=== PATIENT | female | born 1935 | race Caucasian/White ===

== ENCOUNTER → 2016-12-11 | Outpatient (CLI) | payer OTHER, MEDICAID ==
[2014-12-16 10:19] VITALS: BP 157/70
[~2016-12-11] MED LIST: LEXISCAN IV ONE
== END ==
LOC: RAD 08:24
PROVIDERS: ATTEND Nurse Practitioner Family
DX: R07.89 Other chest pain (principal); R42 Dizziness and giddiness; R53.83 Other fatigue; I10 Essential (primary) hypertension; R06.02 Shortness of breath
CPT/HCPCS: 78452; 93017; A4222; A9502; J2785

== ENCOUNTER 2020-03-15 11:07 | Inpatient (IN) ==
--- NOTE | 2020-03-15 12:28 | DR.H&P ---
H&P - History & Physical for Day of: H&P Date: 03/15/20 - Chief Complaint Chief Complaint: fever, sob, ccc - History of Present Illness History of Present Illness: PT IS 84 WF DIRECT ADMIT FROM DR MANDEL OFFICE WITH FEVER 100.9, O2 SAT 88-90% WITH CO BODY ACHES ALL OVER. PT CO SHE HAD COMPLETED ZITHROMAX AND PREDNISONE AND USING BREATHING TREATMENT WITHOUT IMPROVEMENT. PT HAS PMH OF HTN AND HYPOTHYROIDISM. PT HAD NEGATIVE FLU SWAB IN THE OFFICE. - Past Medical History Past Medical History: Hypertension, Hypothyroidism - Social History Does patient currently use any type of tobacco product: No Have you used tobacco products in the last 12 months: No Type of Tobacco Use: None Does any household member use tobacco: No Alcohol Use: None Drug Use: None Risks, benefits, and alternatives of opioids discussed: No Prescription drug monitoring program results: PDMP reviewed and no concerns identified - Medications Home Medications: UNOBTAINABLE Allergy (Unverified 12/02/14 12:13) - Review of Systems Constitutional: Fever, Chills, Sweats, Malaise Eyes: No Symptoms Reported ENT: No Symptoms Reported Respiratory: Cough, Shortness of Breath, SOB with Excertion, Sputum, Wheezing Gastrointestinal: Nausea Genitourinary: No Symptoms Reported Musculoskeletal: Back Pain Skin: No Symptoms Reported Neurological: No Symptoms Reported - Physical Exam Vital Signs: Blood Pressure 157/70 Oriented: Normal Eyes: Normal Ear: Normal Nose: Normal Throat: Dry Respiratory: RLL Diminished, LLL Diminished Cardiovascular: Tachycardia : Normal Auscultation: Bowel Sounds: Normal Palpation: Normal Tenderness: Normal Skin: Decreased Turgur Musculoskeletal: Back:Lumbar Psychiatric: Normal Affect: Anxious Speech Pattern: Clear, Appropriate - Assessment/Plan (1) SOB (shortness of breath) Status: Acute Plan: ADMIT, COVID 19 R/O ON ADMISSION. ABG, DDIMER, CXR, EKG AND RESP CONSULT. BLOOD URINE AND SPUTUM CULTURES ON ADMISSION. SUPPLEMENTAL O2, IV ATBX THERAPY (2) Fever Status: Acute (3) Pneumonia Status: Acute - Allergies Allergies/Adverse Reactions: Allergies Allergy/AdvReac Type Severity Reaction Status Date / Time UNOBTAINABLE Allergy Unverified 12/02/14 12:13
--- NOTE | 2020-03-15 12:55 | RAD ---
HISTORYPNEUMONIA, FEVER, SOB, COUGHSTUDYCHEST, PA/LAT ADULTCOMPARISONNoneFINDINGSThe trachea is midline. The cardiac silhouette is unremarkable . The lungs are clear without focal infiltrate or effusion. The bony thorax is unremarkable.IMPRESSIONNo acute cardiopulmonary disease.Electronically signed by: FAYE BROOKS (Mar 15, 2020 12:54:06)
[2020-03-15] MEDS ORDERED: NS 1000 ML 1,000 ML IV SCH (13:00)
[2020-03-15 13:32] LABS: BASOPHILS % (AUTO) 0.2 % (0.2-1.0); HEMATOCRIT 40.9 % (36.0-47.0); HEMOGLOBIN 13.7 g/dL (12.0-16.0); LYMPHOCYTES % (AUTO) 11.4 % (21.0-51.0); MEAN CORPUSCULAR HEMOGLOBIN 34.1 pg (27.0-34.0); MEAN CORPUSCULAR HGB CONC 33.6 g/dL (33.0-35.0); MEAN CORPUSCULAR VOLUME 101.6 fL (80.0-100.0); MEAN PLATELET VOLUME 9.7 fL (7.4-11.0); MONOCYTES # (AUTO) 0.9 x10^3/uL (0.3-0.8); MONOCYTES % (AUTO) 9.4 % (0.0-13.0); NEUTROPHILS # (AUTO) 7.2 x10^3/uL (2.2-4.8); PLATELET COUNT 249 X10^3/uL (150.0-450.0); RED BLOOD COUNT 4.02 X10^6/uL (3.5-5.4); RED CELL DISTRIBUTION WIDTH 13.6 % (11.6-16.5); WHITE BLOOD COUNT 9.1 X10^3/uL (3.6-10.0)
[2020-03-15 13:51] LABS: ALANINE AMINOTRANSFERASE 20 Units/L (12-78); ALBUMIN 3.4 g/dL (3.4-5.0); ALKALINE PHOSPHATASE 71 Units/L (46-116); ASPARTATE AMINO TRANSFERASE 27 Units/L (15-37); BLOOD UREA NITROGEN 28 mg/dL (7-18); CALCIUM 8.9 mg/dL (8.5-10.1); CARBON DIOXIDE 24.2 mmol/L (21-32); CHLORIDE 102 mmol/L (98-107); COR NA(FOR HYPERGLY) 139 mmol/L (136-145); CREATININE 1.55 mg/dL (0.55-1.02); MAGNESIUM 1.9 mg/dL (1.7-2.9); SODIUM 139 mmol/L (136-145); eGFR NON BLACK RACES 34 (>60)
[2020-03-15] MEDS: PROTONIX INJ 40 MG VIAL IVP SCH (13:52)
[2020-03-15 13:53] LABS: ABG ALLEN TEST POS; ABG BASE EXCESS -1.7 mmol/L (-2.0-2.0); ABG HCO3 21.5 mmol/L (22-26)
[2020-03-15] MEDS ORDERED: REMDESIVIR 200 MG in NS 250 ML IV 250 ML IV SCH (14:00)
[2020-03-15] MEDS: ZITHROMAX INJ 500 MG VIAL 500 MG in NS 250 ML IV 250 ML IV SCH (14:02)
[2020-03-15 14:04] LABS: CKMB % 2.9 % (<4); CREATINE KINASE 34 Units/L (26-192); CREATINE KINASE MB < 1.0 ng/mL (0-4.0); TROPONIN I 0.02 ng/mL (0-1.5)
[2020-03-15] MEDS: SOLU-Medrol 125 MG VIAL IVP SCH ×2 (14:26→21:01)
[2020-03-15 14:42] LABS: BILIRUBIN,URINE NEGATIVE (NEGATIVE); BLOOD/HEMOGLOBIN,URINE NEGATIVE (NEGATIVE); GLUCOSE, URINE NEGATIVE (NEGATIVE); KETONES,URINE 2+ (NEGATIVE); LEUKOCYTE ESTERASE ,URINE NEGATIVE (NEGATIVE); NITRITES,URINE NEGATIVE (NEGATIVE); PROTEIN,URINE 3+ (NEGATIVE); UROBILINOGEN,URINE NORMAL (NORMAL)
[2020-03-15 15:04] VITALS: BMI 22.8
[2020-03-15 15:04] LABS: APPEARANCE,URINE HAZY (CLEAR); COLOR,URINE YELLOW (YELLOW); RBC,URINE 0-2 /HPF (0-3)
[2020-03-15 15:05] LABS: BACTERIA,URINE 1+ /HPF (NEGATIVE); SQUAMOUS EPITHELIAL CELL,UR FEW /HPF (NEGATIVE)
[2020-03-15] MEDS ORDERED: XOPENEX 1.25 MG/3 ML NEBULE NEB ONE (16:07)
[2020-03-15] MEDS: XOPENEX 1.25 MG/3 ML NEBULE NEB SCH (16:35)
[2020-03-15] MEDS: PULMICORT NEB TX 0.5 MG NEB SCH (21:19)
--- NOTE | 2020-03-15 23:23 | CT ---
STUDY: CT CHEST WITHOUT IV CONTRASTCOMPARISON: NoneTECHNIQUE: Axial images were acquired of the chest without IV contrast. Sagittal and coronal reformatted images were provided. All images were reviewed in a variety of windows and levels.3D MIPS were performed and reviewed.RADIATION REDUCTION TECHNIQUE: Automated exposure control, Adjustment of the mA and/or kV according to patient size, or iterative reconstruction techniques were used.HISTORY: COVID, ELEVATED D DIMER, R/O PE, MD WAS INFORMED BY RADIOLOGIST THAT EXAM W/O CONTRAST WOULD NOT SHOW A PE, INSISTEDFINDINGS:CHEST:?Please note that lack of IV contrast limits evaluation of soft tissue structures and vascular detail.?THYROID GLAND: The thyroid gland is grossly unremarkable.?HEART AND VESSELS: The heart size is within normal limits. There is no evidence of pericardial effusion. Thoracic aorta is normal in size without evidence of an aneurysm. Main pulmonary artery size is within normal limits.LYMPH NODES: There is no evidence of axillary, mediastinal, or hilar lymphadenopathy. ?AIRWAY: The trachea mainstem bronchi are patent. No intraluminal lesions are seen. ?LUNGS: Scattered areas of ground-glass opacities are seen throughout the right and left lung involving the subpleural surface and major fissures. These imaging features are in correlation with the patient's history of being positive for COVID-19ESOPHAGUS: The esophagus is grossly unremarkable.BONES: The visualized bones demonstrate degenerative changes. There are no concerning lytic or blastic lesions identified.UPPER ABDOMINAL STRUCTURES: The visualized upper abdominal structures are unremarkable.IMPRESSION:1. Imaging features in the lungs are in correlation with the patient's history of being positive for COVID-19.2. Please note that exam is limited due to lack of IV contrast. Pulmonary embolism cannot be assessed without the use of intravenous contrast on CT.Electronically signed by: Leo Bhatia (Mar 15, 2020 23:21:31)
[2020-03-15] MEDS ORDERED: NS 1000 ML 1,000 ML IV ONE (23:42)
[2020-03-15] MEDS ORDERED: ROCEPHIN 1 GRAM IV PREMIX 1 G/50 ML IV.SOLN. IV ONE (23:54)
[2020-03-16] MEDS: ROCEPHIN 1 GRAM IV PREMIX 1 G/50 ML IV.SOLN. IV SCH ×2 (00:03→21:03)
[2020-03-16] MEDS: XOPENEX 1.25 MG/3 ML NEBULE NEB SCH ×4 (00:41→17:05)
[2020-03-16] MEDS ORDERED: NS 500 ML IV 500 ML IV ONE ×2 (05:29→14:34)
[2020-03-16] MEDS: SOLU-Medrol 125 MG VIAL IVP SCH ×3 (05:42→21:04)
[2020-03-16] MEDS: NS 500 ML IV 500 ML IV SCH ×3 (05:49→17:20)
[2020-03-16 05:53] LABS: BASOPHILS % (AUTO) 0.2 % (0.2-1.0); LYMPHOCYTES # (AUTO) 0.9 X10^3/uL (1.3-2.9); LYMPHOCYTES % (AUTO) 14.2 % (21.0-51.0); MEAN CORPUSCULAR HEMOGLOBIN 34.9 pg (27.0-34.0); MEAN CORPUSCULAR HGB CONC 33.7 g/dL (33.0-35.0); MEAN CORPUSCULAR VOLUME 103.6 fL (80.0-100.0); MEAN PLATELET VOLUME 9.8 fL (7.4-11.0); MONOCYTES # (AUTO) 0.4 x10^3/uL (0.3-0.8); MONOCYTES % (AUTO) 6.7 % (0.0-13.0); NEUTROPHILS % (AUTO) 78.9 % (42.0-75.0); PLATELET COUNT 224 X10^3/uL (150.0-450.0); RED BLOOD COUNT 3.28 X10^6/uL (3.5-5.4); RED CELL DISTRIBUTION WIDTH 13.4 % (11.6-16.5); WHITE BLOOD COUNT 6.3 X10^3/uL (3.6-10.0)
[2020-03-16 06:02] LABS: HEMOGLOBIN 11.4 g/dL (12.0-16.0)
[2020-03-16 06:04] LABS: ALBUMIN 2.5 g/dL (3.4-5.0); CALCIUM 8.4 mg/dL (8.5-10.1); CARBON DIOXIDE 23.4 mmol/L (21-32); COR CA(FOR HYPOALB) 9.6 mg/dL (8.5-10.1); CREATININE 1.19 mg/dL (0.55-1.02); TOTAL PROTEIN 6.3 g/dL (6.4-8.2)
[2020-03-16] MEDS: PULMICORT NEB TX 0.5 MG NEB SCH ×2 (08:50→21:33)
[2020-03-16] MEDS: REMDESIVIR 100 MG in NS 250 ML IV 250 ML IV SCH (08:53)
[2020-03-16] MEDS: PROTONIX INJ 40 MG VIAL IVP SCH (08:53)
[2020-03-16] MEDS: TAB-A-VITE PO SCH (08:53)
[2020-03-16] MEDS: SYNTHROID 75 mcg TAB PO SCH (08:53)
[2020-03-16 09:55] LABS: ABG ALLEN TEST POS; ABG BASE EXCESS -2.9 mmol/L (-2.0-2.0); ABG HCO3 20.8 mmol/L (22-26)
[2020-03-16] MEDS: LOVENOX INJ 40 MG SYR SC SCH (09:57)
[2020-03-16] MEDS: ZITHROMAX INJ 500 MG VIAL 500 MG in NS 250 ML IV 250 ML IV SCH (09:58)
[2020-03-16] MEDS: VITAMIN D3 25 mcg (1,000 UNITS) PO SCH (11:03)
[2020-03-16] MEDS: ZINC SULFATE PO SCH (11:03)
--- NOTE | 2020-03-16 14:11 | CT ---
HISTORYCOVID, ELEVATED D DIMER, R/O PESTUDYCTA CHESTCOMPARISONCT chest without from 03/15/2020TECHNIQUECTA chest protocol with axial images from the thoracic inlet to upper abdomen with IV contrast. Sagittal and coronal reformats and MIP images were created. Automated exposure control was utilized.FINDINGSThyroid gland appears benign. The thoracic aorta measures up to 3.4 cm anteriorly at the proximal ascending portion. Pulmonary artery is borderline in size measuring 31 mm pulmonary trunk. No filling defect is identified to suggest pulmonary embolism. No pathologic adenopathy identified in the thorax. The heart is borderline in size. Severe coronary artery calcifications are present. No significant pericardial effusion. Visualized upper abdomen appears acutely benign. No acute osseous abnormality. The trachea and mainstem bronchi appear patent. Bilateral ground-glass and crazy paving lung opacities are again seen. No significant change from 1 day prior. Trace bilateral pleural effusions. No pneumothorax.IMPRESSIONNegative for pulmonary embolism. Pulmonary findings of covid 19. trace bilateral pleural effusions.Electronically signed by: Conrado Dan (Mar 16, 2020 14:09:45)
[2020-03-16] MEDS: ZOCOR TAB 10 MG PO SCH (21:03)
[2020-03-17] MEDS: XOPENEX 1.25 MG/3 ML NEBULE NEB SCH ×4 (00:50→17:10)
[2020-03-17 05:33] LABS: BASOPHILS % (AUTO) 0.2 % (0.2-1.0); HEMOGLOBIN 10.4 g/dL (12.0-16.0); LYMPHOCYTES % (AUTO) 5.1 % (21.0-51.0); MEAN CORPUSCULAR HEMOGLOBIN 34.4 pg (27.0-34.0); MEAN CORPUSCULAR HGB CONC 33.6 g/dL (33.0-35.0); MEAN CORPUSCULAR VOLUME 102.5 fL (80.0-100.0); MEAN PLATELET VOLUME 9.9 fL (7.4-11.0); MONOCYTES # (AUTO) 1.7 x10^3/uL (0.3-0.8); MONOCYTES % (AUTO) 8.4 % (0.0-13.0); NEUTROPHILS # (AUTO) 17.2 x10^3/uL (2.2-4.8); NEUTROPHILS % (AUTO) 86.3 % (42.0-75.0); PLATELET COUNT 241 X10^3/uL (150.0-450.0); RED BLOOD COUNT 3.03 X10^6/uL (3.5-5.4); RED CELL DISTRIBUTION WIDTH 13.8 % (11.6-16.5)
[2020-03-17] MEDS: SOLU-Medrol 125 MG VIAL IVP SCH ×3 (05:59→21:44)
[2020-03-17] MEDS: NS 500 ML IV 500 ML IV SCH ×5 (05:59→21:55)
[2020-03-17 06:15] LABS: ABG BASE EXCESS -3.6 mmol/L (-2.0-2.0); ABG HCO3 20.4 mmol/L (22-26)
[2020-03-17 06:17] LABS: ABG ALLEN TEST POS
[2020-03-17 06:36] LABS: ALBUMIN 2.5 g/dL (3.4-5.0); CALCIUM 8.3 mg/dL (8.5-10.1); CARBON DIOXIDE 21.8 mmol/L (21-32); COR CA(FOR HYPOALB) 9.5 mg/dL (8.5-10.1); CREATININE 1.29 mg/dL (0.55-1.02); TOTAL PROTEIN 5.8 g/dL (6.4-8.2)
[2020-03-17] MEDS: PROTONIX INJ 40 MG VIAL IVP SCH (08:30)
[2020-03-17] MEDS: REMDESIVIR 100 MG in NS 250 ML IV 250 ML IV SCH (08:30)
[2020-03-17] MEDS: LOVENOX INJ 40 MG SYR SC SCH (08:37)
[2020-03-17] MEDS: SYNTHROID 75 mcg TAB PO SCH (08:38)
[2020-03-17] MEDS: ZINC SULFATE PO SCH (08:38)
[2020-03-17] MEDS: VITAMIN D3 25 mcg (1,000 UNITS) PO SCH (08:38)
[2020-03-17] MEDS: TAB-A-VITE PO SCH (08:38)
[2020-03-17] MEDS: PULMICORT NEB TX 0.5 MG NEB SCH ×2 (09:40→20:44)
[2020-03-17] MEDS: ZITHROMAX INJ 500 MG VIAL 500 MG in NS 250 ML IV 250 ML IV SCH (09:40)
[2020-03-17] MEDS: LASIX IVP SCH (09:43)
[2020-03-17] MEDS ORDERED: K-DUR TAB 20 MEQ PO STA (10:59)
--- NOTE | 2020-03-17 11:02 | RAD ---
HISTORYFollow-up COVID-19STUDYChest AP [id number]/23/2020 plain film and chest CTFINDINGSThe heart is within normal limits in size. The homer are normal. The lungs are mildly hyperinflated. The right lung is clear. Subtle perihilar ground-glass infiltrates are now present on the left. No pleural effusions are identified. Bony thorax is unremarkable.IMPRESSIONNo change hyperinflationNew subtle perihilar ground-glass infiltrates on the leftElectronically signed by: FAYE BROOKS (Mar 17, 2020 11:00:25)
[2020-03-17] MEDS: ROCEPHIN 1 GRAM IV PREMIX 1 G/50 ML IV.SOLN. IV SCH (21:43)
[2020-03-17] MEDS: ZOCOR TAB 10 MG PO SCH (21:44)
[2020-03-18] MEDS: XOPENEX 1.25 MG/3 ML NEBULE NEB SCH ×4 (00:45→17:30)
[2020-03-18] MEDS: NS 500 ML IV 500 ML IV SCH ×4 (02:47→18:52)
[2020-03-18 05:06] LABS: ABG BASE EXCESS -2.2 mmol/L (-2.0-2.0); ABG HCO3 22.4 mmol/L (22-26)
[2020-03-18 05:07] LABS: ABG ALLEN TEST POS
--- NOTE | 2020-03-18 05:24 | RAD ---
STUDY: CHEST, 1 VIEWCOMPARISON: March 17, 2020HISTORY: COVID, PNEUMONIAFINDINGS:Persistent diffuse multifocal alveolar airspace disease is seen throughout the right and the which is not significantly changed from the prior study. Tiny small left pleural effusion is noted. No gross pneumothorax is seen. Emphysematous changes noted. Cardiomediastinal contour is stable.IMPRESSION:There is no significant change from prior studyElectronically signed by: Leo Bhatia (Mar 18, 2020 05:23:13)
[2020-03-18 05:41] LABS: BASOPHILS % (AUTO) 0.2 % (0.2-1.0); HEMATOCRIT 31.1 % (36.0-47.0); HEMOGLOBIN 10.3 g/dL (12.0-16.0); LYMPHOCYTES # (AUTO) 0.8 X10^3/uL (1.3-2.9); LYMPHOCYTES % (AUTO) 3.7 % (21.0-51.0); MEAN CORPUSCULAR HEMOGLOBIN 34.1 pg (27.0-34.0); MEAN CORPUSCULAR HGB CONC 33.2 g/dL (33.0-35.0); MEAN CORPUSCULAR VOLUME 102.9 fL (80.0-100.0); MEAN PLATELET VOLUME 10.2 fL (7.4-11.0); MONOCYTES % (AUTO) 4.4 % (0.0-13.0); NEUTROPHILS # (AUTO) 20.7 x10^3/uL (2.2-4.8); NEUTROPHILS % (AUTO) 91.7 % (42.0-75.0); PLATELET COUNT 256 X10^3/uL (150.0-450.0); RED BLOOD COUNT 3.02 X10^6/uL (3.5-5.4); RED CELL DISTRIBUTION WIDTH 13.9 % (11.6-16.5); WHITE BLOOD COUNT 22.6 X10^3/uL (3.6-10.0)
[2020-03-18] MEDS: SOLU-Medrol 125 MG VIAL IVP SCH ×3 (05:43→21:00)
[2020-03-18 05:58] LABS: ALBUMIN 2.4 g/dL (3.4-5.0); CALCIUM 8.3 mg/dL (8.5-10.1); COR CA(FOR HYPOALB) 9.6 mg/dL (8.5-10.1); CREATININE 1.17 mg/dL (0.55-1.02); TOTAL PROTEIN 5.6 g/dL (6.4-8.2)
[2020-03-18 06:00] LABS: BAND NEUTROPHILS % 3 % (0-10); PLATELET MORPHOLOGY COMMENT NORMAL (NORMAL)
[2020-03-18 06:03] LABS: CARBON DIOXIDE 21.2 mmol/L (21-32)
[2020-03-18] MEDS ORDERED: K-DUR TAB 20 MEQ PO PRN (08:12)
[2020-03-18] MEDS ORDERED: POTASSIUM CHL 40 MEQ/NS 0.45% 500 ML IV PRN (08:12)
[2020-03-18] MEDS ORDERED: POTASSIUM CHL 60 MEQ/NS 0.45% 500 ML IV PRN (08:12)
[2020-03-18] MEDS ORDERED: POTASSIUM CHLORIDE LIQ 20 MEQ UDC PO PRN (08:12)
[2020-03-18] MEDS ORDERED: K-RIDER 10 MEQ/NS 100 ML 10 MEQ/100 ML BAG IV PRN (08:12)
[2020-03-18] MEDS ORDERED: MICRO K EXTEN CAP 10 MEQ PO PRN (08:12)
[2020-03-18] MEDS ORDERED: KLOR-CON PO PRN (08:12)
[2020-03-18] MEDS ORDERED: K-DUR TAB 20 MEQ PO ONE (08:31)
[2020-03-18] MEDS: TAB-A-VITE PO SCH (08:38)
[2020-03-18] MEDS: ZINC SULFATE PO SCH (08:39)
[2020-03-18] MEDS: LASIX IVP SCH (08:39)
[2020-03-18] MEDS: PROTONIX INJ 40 MG VIAL IVP SCH (08:39)
[2020-03-18] MEDS: SYNTHROID 75 mcg TAB PO SCH (08:39)
[2020-03-18] MEDS: ZITHROMAX INJ 500 MG VIAL 500 MG in NS 250 ML IV 250 ML IV SCH (08:40)
[2020-03-18] MEDS: REMDESIVIR 100 MG in NS 250 ML IV 250 ML IV SCH (08:40)
[2020-03-18] MEDS: VITAMIN D3 25 mcg (1,000 UNITS) PO SCH (08:42)
[2020-03-18] MEDS: LOVENOX INJ 40 MG SYR SC SCH (08:42)
[2020-03-18] MEDS: PULMICORT NEB TX 0.5 MG NEB SCH ×2 (09:20→21:12)
[2020-03-18] MEDS: MAGNESIUM SULFATE 1 GRAM/100 mL PREMIX 1 GM/100 ML BAG IV PRN ×2 (17:41→21:00)
[2020-03-18] MEDS: ZOCOR TAB 10 MG PO SCH (21:00)
[2020-03-18] MEDS: ROCEPHIN 1 GRAM IV PREMIX 1 G/50 ML IV.SOLN. IV SCH (22:00)
[2020-03-19] MEDS: XOPENEX 1.25 MG/3 ML NEBULE NEB SCH ×2 (00:40→06:07)
[2020-03-19] MEDS: NS 500 ML IV 500 ML IV SCH ×3 (04:00→11:19)
[2020-03-19 05:30] LABS: BASOPHILS % (AUTO) 0.2 % (0.2-1.0); HEMATOCRIT 30.7 % (36.0-47.0); HEMOGLOBIN 10.5 g/dL (12.0-16.0); MEAN CORPUSCULAR HEMOGLOBIN 34.2 pg (27.0-34.0); MEAN CORPUSCULAR VOLUME 100.5 fL (80.0-100.0); MEAN PLATELET VOLUME 9.5 fL (7.4-11.0); MONOCYTES # (AUTO) 0.9 x10^3/uL (0.3-0.8); MONOCYTES % (AUTO) 5.2 % (0.0-13.0); NEUTROPHILS # (AUTO) 15.3 x10^3/uL (2.2-4.8); NEUTROPHILS % (AUTO) 88.6 % (42.0-75.0); PLATELET COUNT 265 X10^3/uL (150.0-450.0); RED BLOOD COUNT 3.06 X10^6/uL (3.5-5.4); RED CELL DISTRIBUTION WIDTH 13.9 % (11.6-16.5); WHITE BLOOD COUNT 17.3 X10^3/uL (3.6-10.0)
[2020-03-19 05:49] LABS: ALBUMIN 2.4 g/dL (3.4-5.0); CALCIUM 8.1 mg/dL (8.5-10.1); CARBON DIOXIDE 23.1 mmol/L (21-32); COR CA(FOR HYPOALB) 9.4 mg/dL (8.5-10.1); CREATININE 1.17 mg/dL (0.55-1.02); MAGNESIUM 2.3 mg/dL (1.7-2.9); TOTAL PROTEIN 5.5 g/dL (6.4-8.2)
[2020-03-19] MEDS: SOLU-Medrol 125 MG VIAL IVP SCH (06:00)
[2020-03-19 06:08] LABS: ABG ALLEN TEST POS; ABG BASE EXCESS 0.6 mmol/L (-2.0-2.0); ABG HCO3 24.3 mmol/L (22-26)
[2020-03-19 06:12] LABS: PLATELET MORPHOLOGY COMMENT NORMAL (NORMAL)
[2020-03-19 08:38] VITALS: BP 124/60
[2020-03-19] MEDS: ZITHROMAX INJ 500 MG VIAL 500 MG in NS 250 ML IV 250 ML IV SCH (08:38)
[2020-03-19] MEDS: PROTONIX INJ 40 MG VIAL IVP SCH (08:39)
[2020-03-19] MEDS: TAB-A-VITE PO SCH (08:39)
[2020-03-19] MEDS: ZINC SULFATE PO SCH (08:39)
[2020-03-19] MEDS: REMDESIVIR 100 MG in NS 250 ML IV 250 ML IV SCH (08:39)
[2020-03-19] MEDS: SYNTHROID 75 mcg TAB PO SCH (08:39)
[2020-03-19] MEDS: LASIX IVP SCH (08:40)
[2020-03-19] MEDS: LOVENOX INJ 40 MG SYR SC SCH (08:40)
[2020-03-19] MEDS: VITAMIN D3 25 mcg (1,000 UNITS) PO SCH (08:41)
[2020-03-19] MEDS: PULMICORT NEB TX 0.5 MG NEB SCH ×2 (09:00→09:05)
--- NOTE | 2020-03-19 11:27 | RAD ---
HISTORYPNEUMONIASTUDYCHEST x-ray, 1 VIEWCOMPARISONX-ray 03/18/2020FINDINGSCOPD. Bilateral pneumonia, left greater than right. Infiltrates appear unchanged. Heart is normal in size. Probable small left pleural effusion.IMPRESSIONNo change in bilateral pneumonia.Electronically signed by: Ulises Krueger (Mar 19, 2020 11:25:31)
[2020-03-19] MEDS ORDERED: SOLU-Medrol 40 MG VIAL IVP SCH (21:00)
== END 2020-03-19 15:54 | disposition home or self-care (01) | DRG 177 ==
LOC: MED/SURG → OBSVTOIN 11:08 → ICU 13:00
PROVIDERS: ADMIT Internal Medicine; ATTEND Internal Medicine
DX: R26.81 Unsteadiness on feet; B95.2 Enterococcus as the cause of diseases classified elsewhere; J12.89 Other viral pneumonia; U07.1 COVID-19; R09.02 Hypoxemia; R00.1 Bradycardia, unspecified; N39.0 Urinary tract infection, site not specified; I10 Essential (primary) hypertension